=== PATIENT | female | born 1970 | race Caucasian/White ===

== ENCOUNTER → 2023-05-02 | Outpatient (CLI) | payer BC ==
[~2023-05-02] VITALS: Ht 180 cm; Wt 128.0 kg
[~2023-05-02] MED LIST: CATHETER FLUSH 10 ML SYR IVP PRN; REGADENOSON 0.4 MG/5 ML SYR (LEXISCAN) IV ONE
[2023-05-02 13:39] VITALS: BP 204/72
--- NOTE | 2023-05-02 15:47 | Cardiology Stress Test Report ---
Stress Test Report Date of Procedure/Referring: Date of Procedure: May 02, 2023 PCP [place] Apr[place] Admitting Physician Admitting Physician: Attending Physician: Shirin Hollingsworth MD Indications: CP Baseline Heart Rate: 81 Baseline Blood Pressure: Blood Pressure Systolic: 204 Blood Pressure Diastolic: 72 Baseline Vitals Vital Signs Date Time Temp Pulse Resp B/P (MAP) Pulse Ox O2 Delivery O2 Flow Rate FiO2 05/02/23 13:39 81 204/72 (116) 97 Baseline EKG: Baseline EKG: NSR Summary After explaining the procedure to the patient, she signed a consent and then brought to the stress nuclear laboratory. Patient received 0.4 mg Lexiscan for stress test, ECG, heart rate and blood pressure were monitored continuously. Resting and stress dose of radio tracer were injected, imaging was acquired and reviewed in short axis, horizontal long axis and vertical long axis views. TID: 0.97 SSS: 4 SDS: 4 EF: 72 Patient tolerated Lexiscan well Baseline hypertension persisted during test Breast attenuation with mild decrease uptake at the mid to apical anterolateral wall with mild reversibility, most probably secondary to breast attenuation, ove rall there is no significant ischemia or infarction on SPECT images Normal left ventricular size, ejection fraction 72% Copy Copies To 1: [facility] [place] SHIRIN HOLLINGSWORTH MD May 02, 2023 15:47
== END ==
LOC: CARD 11:39
PROVIDERS: ATTEND Internal Medicine Cardiovascular Disease
DX: I10 Essential (primary) hypertension (principal); I25.10 Atherosclerotic heart disease of native coronary artery without angina pectoris
CPT/HCPCS: 78452; 93017; A9502